=== PATIENT | male | born 1965 ===

== ENCOUNTER 2023-07-11 17:50 | Emergency (ER) | payer MEDICAID ==
[~2023-07-11] VITALS: Ht 170.2 cm; Wt 81.6 kg
[2023-07-11 18:22] LABS: MEAN CORPUSCULAR VOLUME 92.6 fL (73.0-96.2); WHITE BLOOD COUNT (AUTO) 6.8 K/uL (3.6-10.2)
[2023-07-11] MEDS: IV NORMAL SALINE 1000 ML BAG IV ONE (18:24)
[2023-07-11 18:27] LABS: BASOPHILS # (AUTO) 0.1 K/UL (0.0-0.2); BASOPHILS % (AUTO) 1.8 % (0.0-2.0); EOSINOPHILS # (AUTO) 0.1 K/uL (0.0-0.7); EOSINOPHILS % (AUTO) 1.1 % (0.0-7.0); HEMOGLOBIN 15.5 g/dL (12.5-16.3); LYMPHOCYTES # (AUTO) 2.4 K/uL (0.8-4.8); LYMPHOCYTES % (AUTO) 34.8 % (20.5-51.5); MEAN CORPUSCULAR HEMOGLOBIN 32.7 uug (23.8-33.4); MEAN CORPUSCULAR HGB CONC 35 g/dL (32.5-36.3); MONOCYTES # (AUTO) 0.2 K/uL (0.1-1.30); MONOCYTES % (AUTO) 3.1 % (0.0-11.0); NEUTROPHILS % (AUTO) 59.2 % (38.5-71.5); PLATELET COUNT (AUTO) 230 K/uL (152-348); RED BLOOD CELL COUNT(AUTO) 4.75 MIL/uL (4.06-5.63); RED CELL DISTRIBUTION WIDTH 13.5 % (12.1-16.2)
[2023-07-11 18:29] LABS: DIFFERENTIAL COMMENT 1
[2023-07-11 18:30] LABS: CALCIUM 8.6 mg/dL (8.5-10.1); CARBON DIOXIDE 30 mmol/L (21-32); CHLORIDE 104 mmol/L (98-107); CREATININE 0.8 mg/dL (0.6-1.3); GLUCOSE 106 mg/dL (74-106); POTASSIUM 3.3 mmol/L (3.5-5.1); SODIUM SERUM 141 mmol/L (136-145); UREA NITROGEN, BLOOD 10 mg/dL (7-18)
[2023-07-11 18:41] LABS: *BILIRUBIN,URIN NEGATIVE (NEGATIVE); *BLOOD, URINE NEGATIVE (NEGATIVE); *CLARITY,URINE CLEAR (CLEAR); *COLOR,URINE YELLOW (YELLOW); *KETONES,URINE NEGATIVE (NEGATIVE); *PROTEIN,URINE NEGATIVE (NEGATIVE); *UROBILINOGEN,URINE 0.2 E.U./dl (NORMAL); LEUKOCYTE ESTERASE ,URINE NEGATIVE (NEGATIVE); NITRITE, URINE NEGATIVE (NEGATIVE); UGLUCOSE NEGATIVE (NEGATIVE)
[2023-07-11 18:42] LABS: ALANINE AMINOTRANSFERASE 41 U/L (16-63); ALBUMIN 4.2 g/dL (3.4-5.0); ALKALINE PHOSPHATASE 100 U/L (50-136); ASPARTATE AMINOTRANSFERASE 25 U/L (15-37); BILIRUBIN,DIRECT 0.1 mg/dL (0.0-0.2); BILIRUBIN,TOTAL 0.8 mg/dL (0.2-1.0)
[2023-07-11] MEDS ORDERED: CLOT15CR5 TP (18:47)
[2023-07-11 19:13] LABS: MAGNESIUM 2.1 mg/dL (1.8-2.4); PHOSPHOROUS 3.9 mg/dL (2.5-4.9)
[2023-07-11] MEDS ORDERED: POTASSIUM CHLORIDE 20 MEQ TAB.PRT.SR PO ONE (21:45)
[2023-07-11 23:08] VITALS: BP 144/96; TEMP 98.2; O2SAT 99
[2023-07-13 04:08] LABS: *CHLAMYDIA NAA Negative (Negative); *GC NAA Negative (Negative)
[2023-07-13 08:11] LABS: *TRIC.VAG. NAA Negative (Negative)
== END 2023-07-11 23:08 | disposition home or self-care (01) ==
LOC: ER 17:53
DX: Z11.3 Encounter for screening for infections with a predominantly sexual mode of transmission (principal); R20.2 Paresthesia of skin; N48.1 Balanitis; E87.6 Hypokalemia
CPT/HCPCS: 99285; 96360; 71045; 80076; 80048; 81003; 82607; 82962; 83735; 84100; 85025; 84484; 36415; 93005; 87491; 82747; 85014; J7040; A4606; A4663